=== PATIENT | female | born 1970 | race Two or more races ===

== ENCOUNTER 2020-03-27 01:56 | Emergency (ER) | payer BC ==
[~2020-03-27] VITALS: Ht 157.5 cm; Wt 49.4 kg
== END 2020-03-27 02:30 | disposition home or self-care (01) ==
LOC: ER 02:16
DX: I49.3 Ventricular premature depolarization (principal); R94.31 Abnormal electrocardiogram [ECG] [EKG]
CPT/HCPCS: 93005; 99283

== ENCOUNTER 2020-03-27 09:14 | Observation (INO) | payer BC ==
[~2020-03-27] VITALS: Ht 157.5 cm; Wt 49.4 kg
[2020-03-27] VITALS (15 sets, daily range): BP systolic 100–125; BP diastolic 58–89
[2020-03-27] MEDS ORDERED: ONDANSETRON HCL INJ 2MG/ML 2ML 2 MG/ML VIAL IV PRN (09:45)
[2020-03-27] MEDS ORDERED: MORPHINE SULFATE INJ 2 MG/ML SYR IV PRN (09:45)
[2020-03-27 10:06] LABS: BASOPHILS % 0.4 % (0.0-1.0); EOSINOPHILS % 0.5 % (0.0-6.0); HEMOGLOBIN 14.7 g/dL (12.0-16.0); LYMPHOCYTES % 24.6 % (18.0-39.1); MEAN CORPUSCULAR HEMOGLOBIN 30.8 pg (28-32); MEAN CORPUSCULAR HGB CONC 35.9 g/dL (31-35); MONOCYTES # (AUTO) 0.7 (0.2-0.8); MONOCYTES % 8.4 % (4.4-11.3); NEUTROPHILS # (AUTO) 5.5 (2.1-6.9); NEUTROPHILS % 65.7 % (38.7-80.0); PLATELET COUNT 289 x10e3/uL (140-360); RED BLOOD COUNT 4.77 x10e6/uL (3.6-5.1); RED CELL DISTRIBUTION WIDTH 14.6 % (11.7-14.4)
[2020-03-27 10:19] LABS: ALANINE AMINOTRANSFERASE 14 IU/L (0-55); ALBUMIN 4.5 g/dL (3.5-5.0); ALBUMIN/GLOBULIN RATIO 1.1 (0.8-2.0); ALKALINE PHOSPHATASE 68 IU/L (40-150); ANION GAP 14.7 mmol/L (8-16); BLOOD UREA NITROGEN 9 mg/dL (7-26); BUN/CREATININE RATIO 12 (6-25); CALCIUM 10.3 mg/dL (8.4-10.2); CARBON DIOXIDE 27 mmol/L (22-29); CHLORIDE 103 mmol/L (98-107); CREATINE KINASE 81 IU/L (29-168); CREATININE, SERUM 0.74 mg/dL (0.57-1.11); EST GLOMERULAR FILTRATION RATE > 60 ML/MIN (60-); GLUCOSE 105 mg/dL (74-118); POTASSIUM 3.7 mmol/L (3.5-5.1); SODIUM 141 mmol/L (136-145)
[2020-03-27] MEDS ORDERED: VERAPAMIL HCL 2.5 MG/ML 2 ML VIAL ONE (10:25)
[2020-03-27] MEDS ORDERED: HEPARIN SOD (PORCINE) 1000 UNIT/ML 30ML ONE (10:25)
[2020-03-27] MEDS ORDERED: MIDAZOLAM HCL 2 MG/2 ML VIAL ONE (10:26)
[2020-03-27] MEDS ORDERED: LIDOCAINE HCL 2% LOCAL 20 ML VIAL ONE (10:26)
[2020-03-27] MEDS ORDERED: FENTANYL CITRATE/PF 100MCG/2 ML INJ ONE (10:26)
[2020-03-27] MEDS ORDERED: HEPARIN SOD/SOD CHLORIDE 2,000 ML ONE (10:26)
[2020-03-27] MEDS ORDERED: SODIUM CHLORIDE 0.9% 1000ML 1,000 ML ONE (10:27)
[2020-03-27] MEDS ORDERED: NITROGLYCERIN/D5W 200 MCG/ML 250 ML ONE (10:27)
[2020-03-27] MEDS ORDERED: IOPAMIDOL 370 MG/ML 200 ML INFUS..BTL INJ ONE (10:27)
[2020-03-27] MEDS: METOPROLOL SUCCINATE 25 MG TAB XL PO SCH (10:45)
[2020-03-27] MEDS: LISINOPRIL 2.5 MG TAB PO SCH (10:45)
[2020-03-27 11:00] LABS: INR 0.9; PROTHROMBIN TIME 12.7 seconds (11.9-14.5)
[2020-03-27 11:01] LABS: PARTIAL THROMBOPLASTIN TIME 28.2 seconds (23.8-35.5)
[2020-03-27 11:08] LABS: FREE THYROXINE INDEX 2.5344 (1.4-3.8); THYROID STIMULATING HORMONE 0.746 uIU/mL (0.350-4.940)
[2020-03-27 22:35] LABS: CREATINE KINASE MB 1.2 ng/mL (0-5.0)
[2020-03-28] VITALS (8 sets, daily range): BP systolic 97–113; BP diastolic 67–88
[2020-03-28 05:27] LABS: BASOPHILS % 0.2 % (0.0-1.0); EOSINOPHILS # (AUTO) 0.1 (0.0-0.4); EOSINOPHILS % 1.1 % (0.0-6.0); HEMATOCRIT 36.8 % (34.2-44.1); HEMOGLOBIN 13.3 g/dL (12.0-16.0); LYMPHOCYTES # (AUTO) 2.4 (1.0-3.2); LYMPHOCYTES % 26.5 % (18.0-39.1); MEAN CORPUSCULAR HEMOGLOBIN 30.9 pg (28-32); MEAN CORPUSCULAR HGB CONC 36.1 g/dL (31-35); MEAN CORPUSCULAR VOLUME 85.6 fL (81-99); MONOCYTES # (AUTO) 0.9 (0.2-0.8); MONOCYTES % 9.7 % (4.4-11.3); NEUTROPHILS # (AUTO) 5.7 (2.1-6.9); NEUTROPHILS % 62.3 % (38.7-80.0); PLATELET COUNT 254 x10e3/uL (140-360); RED CELL DISTRIBUTION WIDTH 14.6 % (11.7-14.4)
[2020-03-28 05:56] LABS: CREATINE KINASE MB 0.9 ng/mL (0-5.0)
[2020-03-28 06:20] LABS: ALANINE AMINOTRANSFERASE 13 IU/L (0-55); ALBUMIN 3.9 g/dL (3.5-5.0); ALBUMIN/GLOBULIN RATIO 1.1 (0.8-2.0); ALKALINE PHOSPHATASE 57 IU/L (40-150); ANION GAP 16.7 mmol/L (8-16); BLOOD UREA NITROGEN 11 mg/dL (7-26); BUN/CREATININE RATIO 15 (6-25); CALCIUM 9.7 mg/dL (8.4-10.2); CARBON DIOXIDE 25 mmol/L (22-29); CHLORIDE 103 mmol/L (98-107); CHOL/HDL RATIO 2.9 (3.0-3.6); CHOLESTEROL 200 MD/DL (0-199); CREATININE, SERUM 0.72 mg/dL (0.57-1.11); EST GLOMERULAR FILTRATION RATE > 60 ML/MIN (60-); GLUCOSE 94 mg/dL (74-118); HDL CHOLESTEROL 69 MG/DL (40-60); LDL CHOLESTEROL 115 MG/DL (60-130); POTASSIUM 3.7 mmol/L (3.5-5.1); SODIUM 141 mmol/L (136-145); TRIGLYCERIDES 78 MG/DL (0-149)
[2020-03-28] MEDS: METOPROLOL SUCCINATE 25 MG TAB XL PO SCH (09:05)
[2020-03-28] MEDS: LISINOPRIL 2.5 MG TAB PO SCH (09:05)
[2020-03-28] MEDS ORDERED: METOPROLOL TARTRATE 25 MG TAB ONE (13:00)
[2020-03-28] MEDS ORDERED: METOPROLOL TARTRATE 50 MG TAB PO ONE (13:30)
[2020-03-28] MEDS ORDERED: NITROGLYCERIN 0.4 MG SUBL ONE (14:37)
[2020-03-28] MEDS ORDERED: SODIUM CHLORIDE 0.9% 100 ML ONE (14:43)
[2020-03-28] MEDS ORDERED: IOPAMIDOL 370 MG/ML 200 ML INFUS..BTL INJ ONE (14:43)
== END 2020-03-28 16:29 | disposition home or self-care (01) ==
LOC: ER 09:25 → ERHOLD 09:54 → MED/SURG2 13:56
PROVIDERS: ADMIT Internal Medicine Cardiovascular Disease; ATTEND Internal Medicine Cardiovascular Disease
DX: I11.0 Hypertensive heart disease with heart failure (principal); I50.23 Acute on chronic systolic (congestive) heart failure; I49.3 Ventricular premature depolarization; Z20.822 Contact with and (suspected) exposure to COVID-19; I73.9 Peripheral vascular disease, unspecified
CPT/HCPCS: 36415 ×2; 71045; 75574; 80053 ×2; 80061; 82550 ×2; 82553 ×2; 83735; 83880; 84436; 84443; 84479; 84484 ×2; 84702; 85025 ×2; 85610; 85730; 93005; 93458; 99284; C1887; G0378 ×2; J1644; J2001; J2250; J2270; J2405; J3010; J7030; J7050; Q9967 ×2; U0002; 99152